=== PATIENT | male | born 1955 | race Caucasian/White ===

== ENCOUNTER 2019-09-15 06:21 | Inpatient (IN) ==
[2019-09-09 13:17] LABS: Basophils # (Auto) 0.1 K/mcL (0.0-0.3); Basophils % (Auto) 0.7 % (0.0-2.0); Eosinophils # (Auto) 0.2 K/mcL (0.0-0.7); Eosinophils % (Auto) 2.3 % (0.0-7.0); Granulocytes % (Auto) 68.7 % (38.0-78.0); Hematocrit 40.8 % (41.0-55.0); Hemoglobin 14.3 g/dL (13.5-16.5); Lymphocytes # (Auto) 2.1 K/mcL (1.5-4.8); Mean Cell Volume 93.8 fL (80.0-100.0); Mean Corpuscular HGB Conc 35.1 g/dL (31.0-36.0); Mean Platelet Volume 8.5 fL (7.4-10.4); Monocytes # (Auto) 0.9 K/mcL (0.1-0.9); Monocytes % (Auto) 8.3 % (1.0-12.0); Platelet Count 310 K/mcL (140-440); RBC 4.35 M/mcL (4.50-5.90); Red Cell Distribution Width 13.7 % (11.5-14.5); WBC 10.4 K/mcL (4.5-11.0)
[2019-09-09 13:33] LABS: Appearance,Urine CLEAR; Bilirubin,Urine NEG (NEG); Color,Urine YELLOW; Culture Indicated,Urine NO; Glucose,Urine (UA) NEGATIVE (NEG); Ketones,Urine NEG (NEG); Leukocyte Esterase,Urine NEG /uL (NEG); Nitrate,Urine NEG (NEG); Protein,Urine NEG (NEG); Specific Gravity,Urine 1.011 (1.000-1.035); Urine Blood NEG mg/dL (<0.03); Urobilinogen,Urine NEG (NEG)
[2019-09-09 13:53] LABS: Blood Urea Nitrogen 17 mg/dl (8-23); Calcium 9.7 mg/dl (8.6-10.4); Carbon Dioxide 24 mmol/L (22-30); Chloride 96 mmol/L (96-108); Glomerular Filtration Rate 57; Glucose 86 mg/dL (70-105)
[2019-09-09 14:04] LABS: Estimated Average Glucose(eAG) 120 mg/dL; Hemoglobin A1C 5.8 % HGB (4.0-6.0)
[~2019-09-15 06:21] MED LIST: 0.9 % SODIUM CHLORIDE 9 ML, KETOROLAC 30 MG, ROPIVACAINE HCL/PF 49.5 ML, EPINEPHrine 0.... IJ SCH; CELECOXIB 200 MG CAPSULE PO SCH; IPRATROPIUM/ALBUTEROL 3 ML AMPUL.NEB NEB PRN; PREGABALIN 75 MG CAPSULE PO SCH; SCOPOLAMINE 1 PATCH PATCH TOPICAL PRN; ceFAZolin 2 GM in DEXTROSE 5% IN WATER 50 ML IV SCH; oxyCODONE 10 MG TAB.ER.12H PO SCH
[2019-09-15] MEDS ORDERED: GLYCOPYRROLATE 0.2 MG/ML VIAL IV ONE (09:25)
[2019-09-15] MEDS ORDERED: fentaNYL 250 MCG/5 ML VIAL IV ONE (09:25)
[2019-09-15] MEDS ORDERED: MIDAZOLAM 5 MG/5 ML VIAL IV ONE (09:25)
[2019-09-15] MEDS ORDERED: ONDANSETRON 4 MG/2 ML VIAL IV ONE (09:25)
[2019-09-15] MEDS ORDERED: ROPIVACAINE HCL/PF 20 ML VIAL IJ ONE (09:25)
[2019-09-15] MEDS ORDERED: TRANEXAMIC ACID 1,000 MG/10 ML VIAL IV ONE (09:25)
[2019-09-15] MEDS ORDERED: PROPOFOL 200 MG/20 ML VIAL IV ONE (09:25)
[2019-09-15] MEDS ORDERED: DEXAMETHASONE 10 MG/ML VIAL IV ONE (09:25)
[2019-09-15] MEDS ORDERED: KETAMINE 100 MG/ML ML IV ONE (09:25)
[2019-09-15] MEDS ORDERED: LIDOCAINE HCL/PF 100 MG/5 ML SYRINGE IV ONE (09:25)
[2019-09-15] MEDS ORDERED: ATROPINE SULFATE 0.4 MG/ML VIAL IV PRN (10:15)
[2019-09-15] MEDS ORDERED: ACETAMINOPHEN 1,000 MG/100 ML BOTTLE IV ONE (10:15)
[2019-09-15] MEDS ORDERED: fentaNYL 100 MCG/2 ML VIAL IV PRN (10:15)
[2019-09-15] MEDS ORDERED: MEPERIDINE 25 MG/ML SYRINGE IV PRN (10:15)
[2019-09-15] MEDS ORDERED: LACTATED RINGERS 1,000 ML IV SCH (10:15)
[2019-09-15] MEDS ORDERED: PROMETHAZINE 25 MG/ML VIAL IV PRN (10:15)
[2019-09-15] MEDS ORDERED: NALOXONE HCL 0.4 MG/ML VIAL IV PRN (10:15)
[2019-09-15] MEDS ORDERED: IPRATROPIUM/ALBUTEROL 3 ML AMPUL.NEB NEB PRN (10:15)
[2019-09-15] MEDS ORDERED: HYDROmorphone 2 MG/ML VIAL IV PRN ×2 (10:15→10:58)
[2019-09-15] MEDS ORDERED: diphenhydrAMINE 50 MG/ML VIAL IV PRN (10:15)
[2019-09-15] MEDS ORDERED: METHOCARBAMOL 1,000 MG/10 ML VIAL IV PRN (10:15)
[2019-09-15] MEDS ORDERED: ePHEDrine 50 MG/ML AMPUL IV PRN (10:15)
[2019-09-15] MEDS ORDERED: FLUMAZENIL 0.1 MG/ML ML IV PRN (10:15)
[2019-09-15] MEDS ORDERED: METOPROLOL TARTRATE 5 MG/5 ML VIAL IV PRN (10:15)
[2019-09-15] MEDS ORDERED: ONDANSETRON 4 MG/2 ML VIAL IV PRN ×2 (10:15→10:58)
[2019-09-15] MEDS ORDERED: FLEETS ADULT ENEMA PR PRN (10:58)
[2019-09-15] MEDS ORDERED: BENZOCAINE/MENTHOL 1 LOZENGE PO PRN (10:58)
[2019-09-15] MEDS ORDERED: POLYETHYLENE GLYCOL 3350 17 GM PACKET PO PRN (10:58)
[2019-09-15] MEDS ORDERED: BISACODYL 10 MG SUPP.RECT PR PRN (10:58)
[2019-09-15] MEDS ORDERED: TRANEXAMIC ACID 1,000 MG/10 ML VIAL IV SCH (10:58)
[2019-09-15] MEDS ORDERED: MAGNESIUM HYDROXIDE 30 ML ORAL.SUSP PO PRN (10:58)
--- NOTE | 2019-09-15 10:58 | Brief Operative Note ---
Date of procedure: 09/15/19 Pre-op diagnosis: Left knee severe OA Post-op diagnosis: same Procedure: Left robotic assisted total knee arthroplasty Grafts/Implants: Yes (Taylor Triathlon 6 CR femur, 6 tibia, 13mm CR insert, 39 patella) Anesthesia: spinal, GLMA Findings: severe varus deformity, 17 deg preop Complications: none Surgeon: Jerod Nick Side Splitter: Bernard Stapleton Estimated blood loss (cc): 30 Specimens Removed/Pathology: none sent Condition: stable Disposition: PACU
--- NOTE | 2019-09-15 11:43 | Operative Note ---
DATE OF OPERATION: 09/15/2019 PREOPERATIVE DIAGNOSIS: Left knee severe osteoarthritis. POSTOPERATIVE DIAGNOSIS: Left knee severe osteoarthritis. PROCEDURE PERFORMED: Left robotic-assisted total knee arthroplasty placing a Domi Triathlon size 6 cruciate retaining femoral component, size 6 tibial baseplate, 13 mm tibial insert with a 39 mm patellar button. SURGEON: Jerod Nick MD HAND COKE DRAWER: Jeramie Stapleton PA-C. This provider's expertise and technical skill were required throughout the case. The PA assisted with preoperative coordination, intraoperative retraction, wound closure, dressing and splint application, as well as postoperative documentation and care coordination. ANESTHESIA: Spinal plus general. DRAINS: None. SPECIMENS: Bone cuts, which were discarded. BLOOD LOSS: 50 mL COMPLICATIONS: None. POSTOPERATIVE CONDITION: Stable. INDICATIONS FOR SURGERY: This is a 64-year-old male who has had longstanding progressive worsening left knee pain. Radiographs showed severe [id number]-eu-[id number] osteoarthritis with varus deformity. FINDINGS AT SURGERY: He had a 17 degree varus knee preoperatively with severe arthritis. Post implantation showed satisfactory joint stability, patellar tracking. PROCEDURE IN DETAIL: The patient had been seen preoperatively. Informed consent had been obtained after discussion of risks and benefits of surgery. Risks including, but not limited to, bleeding, possibly requiring transfusion; infection, possibly requiring implant removal and prolonged IV antibiotics; injury to nerves, blood vessels, and other surrounding structures; anesthetic risks; incomplete or no resolution of symptoms; swelling; stiffness; pain; instability; DVT and pulmonary embolus risks; and the possibility of needing further revision joint surgery. Patient understood and wished to proceed. Correct operative site was marked in preoperative holding, and patient was taken to the operating room and general anesthesia was induced. The left lower extremity was then prepped and draped in normal sterile fashion, and a timeout was performed verifying patient name, operative site, and plan. Ioban was placed over all skin surfaces and an Esmarch was used to exsanguinate the extremity, and tourniquet was inflated to 300 mmHg. A midline incision was made with a scalpel through skin and subcutaneous tissue, then IrriSept was irrigated and a medial parapatellar arthrotomy was made, and then a subperiosteal exposure was done of the anterior medial tibia. Anterior horns of the menisci were removed, as well as retropatellar fat pad. ACL was transected. We then did a resection of the patella freehand, premeasuring thickness and then placing a cut protector after. We then placed our femoral and tibial checkpoints, and then a scalpel was used to make two stab incisions over the femur and two over the tibia and bicortical pins placed. The arrays were connected. The green probe was used to identify medial and lateral malleoli and double-checks were made with the green probe of the femoral and tibial check points. Blue probe was then used to do our mapping. A rongeur was used to remove osteophytes. We then used the spoons to check our flexion-extension gaps and made adjustments to get as close to 17 mm gaps on all four numbers as possible. Once this was completed, we then used the robotic arm to make our bone cuts. The tibia was prepared with the boss reamer and keel punch and externally rotated as bone coverage would allow. A keeled tibial trial was placed, and the femur was elevated. Curved osteotome and curet were used to remove posterior osteophytes. Femoral trial was then impacted and pinned into place. This was placed flush along the lateral cortex of the femur and then peg holes were drilled. A 9 insert trial was placed and then the knee was taken into extension. We then prepared the patella medializing maximally and sized this to a 39 patella. We then checked the patellar tracking and it was stable. We then removed trial implants. Definitive implants were opened while the joint was irrigated with IrriSept. After waiting a minute, we pulse lavaged with saline. Antibiotic cement was mixed and then the cancellous bone surfaces were dried with the CO2 gun. We then cemented the tibia, followed by the femur. Excess cement was removed, and the trial insert was placed, and the knee was taken into extension. The patella was then cemented. After excess cement was removed, we filled the joint with IrriSept. The tibial and femoral check points were removed. The extension was checked and then we removed our arrays and our pins. We injected pain cocktail in the pericapsular and subcutaneous tissues. Once cement had fully hardened, we flexed the knee up. We removed the insert trial, injected pain cocktail in the posteromedial capsule. We then opened a 6 mm CR insert, and this was carefully impacted and verified to be fully seated. The knee was then placed in extension and filled with IrriSept. After a minute it was copiously pulse lavaged with saline. We then flexed the knee to 45 degrees of flexion. A #2 FiberWire [id number] was used around the superior quadrant of the patella, #1 Vicryl [id number] around the inferior quadrant. Running #1 Vicryl was used for patellar tendon and quad tendon. Final IrriSept irrigation was done, after a minute final pulse lavage, and then 2-0 Monocryl was used for subcutaneous and howard for skin. Xeroform and sterile dressing were applied. Tourniquet was released. The patient was awakened, extubated, and transferred to recovery in stable condition. [email or web address] Job ID: [id number] Doc ID: [id number] Jerod Nick MD
--- NOTE | 2019-09-15 12:45 | XRay Report ---
CLINICAL INFORMATION: Postsurgical follow-up TECHNIQUE: AP, crosstable lateral, patellar view COMPARISON: None. FINDINGS: Status post left total knee arthroplasty. Femoral and tibial components are in anatomic positions. There is postsurgical soft tissue and intra-articular gas. IMPRESSION: Left total knee arthroplasty Interpreted and Authenticated by: Quang Hagen 09/15/19
[2019-09-15] MEDS: KETOROLAC 15 MG/ML VIAL IV SCH ×3 (14:18→23:24)
[2019-09-15] MEDS: 0.9 % SODIUM CHLORIDE 1,000 ML IV SCH ×2 (14:19→23:30)
[2019-09-15] MEDS: 0.9 % SODIUM CHLORIDE 10 ML SYRINGE IV SCH ×2 (15:11→22:00)
--- NOTE | 2019-09-15 16:10 | Discharge Summary ---
Providers - Providers Patient information: Note initiated : 09/15/19 at 4:08 pm Service Date, if different from initiated Date: [] Patient: Wily Palacios 64 y/o M admitted on 09/15/19 for Left Total Knee Arthroplasty Martin. Chief Complaint: Pt examined on 09/16/19. NVI-Distal, Bandages c/d/i. Pt ready for discharge to home today. Discharge date: 09/16/19 Hospitalization Hospital Course: Pt was admitted for a L TKA. Pt admitted on the day of admission. Pt spent one night on the floor for IV pain meds, IV abx, and PT. Pt discharged on post-op day 1. ASA for DVT prophylaxis. f/u in 2 weeks. Discharge diagnosis: L knee OA Exam - Exam Clean and dry: Yes Weight bearing status: as tolerated Ortho Discharge - TKA - Patient Instructions Diet: Regular Diet Activity: activity as tolerated Total Knee Protocol: For Total Knee: Start ROM DRU with stationary bike or rocking chair. Work on gaining full extension of knee. Posterior dislocation precautions provided. Hip abductor strengthening and gait training instructions provided. Apply Cryocuff as instructed. Dressing Care: May shower in 2 days - Follow Up Plan Follow Up Appointments: Bernard Stapleton PA-C [Physician [facility]] - 10/01/19 10:00 am Disposition: Home, Self-Care Prognosis: Good Rehab Potential: Good Overall status at discharge: patient is progressing back to baseline - Orders For Discharge Prescriptions: Aspirin 81 mg PO BID #30 tab.chew Transmission [email or web address]APAP 10/325MG [[place] 10-325Mg] 1 - 2 tab PO Q4HP PRN #90 tab PRN Reason: Pain Level 3-6 Prescription Printed Additional Discharge Orders: Physical Therapy at Discharge - General Location: None Selected Walker Location: None Selected Pending Studies Resuscitation Status Full Code Diet Consistent Carbohydrate Diet Start SatSep 15 1059 Sodium Chloride (Sodium Chloride 0.9%) 1,000 mls @ 100 mls/hr IV .Q10H [facility] Last Admin: 09/15/19 14:19 Dose: 100 mls/hr Documented by: RISHABH Ketorolac Tromethamine (Toradol) 15 mg IV Q6 [facility] Stop: 09/17/19 06:01 Last Admin: 09/15/19 14:18 Dose: 15 mg Documented by: RISHABH Sodium Chloride (Saline Flush) 10 ml IV Q8 [facility] Last Admin: 09/15/19 15:11 Dose: Not Given Documented by: RISHABH
[2019-09-15] MEDS: ceFAZolin 1 GM VIAL IV SCH (17:36)
[2019-09-15] MEDS ORDERED: ATORVASTATIN 20 MG TABLET PO SCH (21:00)
[2019-09-15] MEDS ORDERED: SENNOSIDES 1 TABLET PO SCH (21:00)
[2019-09-15] MEDS: DOCUSATE SODIUM 100 MG CAPSULE PO SCH (21:47)
[2019-09-15] MEDS: ASPIRIN 81 MG TAB.CHEW PO SCH (21:47)
[2019-09-15] MEDS: HYDROcodone/APAP 10/325MG TABLET PO PRN (23:24)
[2019-09-16] MEDS: ceFAZolin 1 GM VIAL IV SCH (01:52)
[2019-09-16] MEDS: HYDROcodone/APAP 10/325MG TABLET PO PRN (01:52)
[2019-09-16] MEDS: 0.9 % SODIUM CHLORIDE 10 ML SYRINGE IV SCH (05:59)
[2019-09-16] MEDS: KETOROLAC 15 MG/ML VIAL IV SCH (05:59)
[2019-09-16] MEDS: 0.9 % SODIUM CHLORIDE 1,000 ML IV SCH (07:29)
[2019-09-16] MEDS: ASPIRIN 81 MG TAB.CHEW PO SCH (08:41)
[2019-09-16] MEDS: DOCUSATE SODIUM 100 MG CAPSULE PO SCH (08:41)
[2019-09-16] MEDS ORDERED: METOPROLOL SUCCINATE 50 MG TAB.XL.24H PO SCH (09:00)
[2019-09-16] MEDS ORDERED: VITAMIN D3 1,000 UNIT TABLET PO SCH (09:00)
[2019-09-16] MEDS ORDERED: HYDROCHLOROTHIAZIDE 12.5 MG CAPSULE PO SCH (09:00)
[2019-09-16] MEDS ORDERED: amLODIPine 10 MG TABLET PO SCH (09:00)
[2019-09-16] MEDS ORDERED: THIAMINE 100 MG TABLET PO SCH (09:00)
[2019-09-16] MEDS ORDERED: FLU VACC QS2019-20(6MOS UP)/PF 60 MCG/0.5 ML SYRINGE IM ONE (10:00)
== END 2019-09-16 12:52 | disposition home or self-care (01) | DRG 470 ==
LOC: MEDSUR 06:21
PROVIDERS: ADMIT Orthopaedic Surgery; ATTEND Orthopaedic Surgery